=== PATIENT | male | born 1950 | race Caucasian/White ===

== ENCOUNTER 2018-03-12 11:55 | Emergency (ER) | payer MEDICARE ==
[~2018-03-12] VITALS: Ht 185.4 cm; Wt 90.7 kg
[~2018-03-12 11:55] MED LIST: ARICEPT10 M1 PO; Avapro300 MG PO; HYDROCHLOROTH12.5 M3 PO; IRBESARTAN150 MG PO; LOPRESSOR50 M1 PO; METHOTREXATE2.5 M1 PO; NAMENDA10 MG PO; NATURE'S BLEND F1 MG PO; NORVASC10 MG PO; UNSURE OF MEDS; ZOLOFT50 MG PO
== END 2018-03-12 14:32 | disposition home or self-care (01) ==
LOC: ED 11:55
DX: S90.31XA Contusion of right foot, initial encounter (principal); I10 Essential (primary) hypertension; Z90.89 Acquired absence of other organs; Z98.890 Other specified postprocedural states; Z79.899 Other long term (current) drug therapy; Z88.0 Allergy status to penicillin; Z88.2 Allergy status to sulfonamides; W22.8XXA Striking against or struck by other objects, initial encounter; Y93.89 Activity, other specified; Y92.89 Other specified places as the place of occurrence of the external cause; Y99.9 Unspecified external cause status

== ENCOUNTER → 2020-06-30 | Outpatient (CLI) | payer MEDICARE | END | disposition home or self-care (01) | LOC: COVID19 01:13 | PROVIDERS: ATTEND Family Medicine | DX: Z20.828 Contact with and (suspected) exposure to other viral communicable diseases (principal) ==